=== PATIENT | female | born 1980 | race African-American/Black ===

== ENCOUNTER 2017-06-26 09:52 | Emergency (ER) | payer MEDICAID ==
[~2017-06-26] VITALS: Ht 160 cm; Wt 53.0 kg
[2017-06-26] MEDS ORDERED: ACETAMINOPHEN 325MG TABLET PO ONE (10:45)
[2017-06-26 11:06] LABS: BASOPHILS % 1.2 % (0.0-2.0); EOSINOPHILS % 3.5 % (0.0-5.0); HEMATOCRIT. 37.9 % (36.0-48.0); HEMOGLOBIN. 12.7 g/dL (12.0-16.0); MEAN CORPUSCULAR HEMOGLOBIN 27.8 pg (28.0-32.0); MEAN PLATELET VOLUME 8.2 fl (7.4-10.4); MONOCYTES % 6.3 % (2.0-8.0); PLATELET 220 x1000/uL (130-400); RED BLOOD CELL COUNT 4.56 mill/uL (4.2-5.4); RED CELL DISTRIBUTION WIDTH 14.8 % (11.6-14.6)
[2017-06-26 11:08] LABS: CHLORIDE 106 mEq/L (98-107)
[2017-06-26 11:33] LABS: CLARITY URINE CLEAR (CLEAR); COLOR URINE YELLOW (YELLOW); KETONES URINE NEGATIVE (NEGATIVE); LEUKOCYTE ESTERASE URINE NEGATIVE (NEGATIVE); NITRITE URINE NEGATIVE (NEGATIVE); OCCULT BLOOD URINE NEGATIVE (NEGATIVE); PH URINE 7.5 (4.5-8.0); PROTEIN URINE NEGATIVE (NEGATIVE); SPECIFIC GRAVITY URINE 1.005 (1.005-1.030); UROBILINOGEN URINE 0.2 E.U./dL (0.2-1.0)
[2017-06-26 12:18] VITALS: BP 103/59
== END 2017-06-26 12:46 | disposition home or self-care (01) ==
LOC: ER 10:08
DX: R10.32 Left lower quadrant pain (principal); R11.0 Nausea; R03.0 Elevated blood-pressure reading, without diagnosis of hypertension
CPT/HCPCS: 36415; 76830; 76856; 80053; 81003; 81025; 85025; 99285; Z7610